=== PATIENT | female | born 1935 | race Caucasian/White ===

== ENCOUNTER → 2017-01-03 | Day surgery (SDC) | payer MEDICARE ==
[~2017-01-03] MED LIST: ASPI81 PO; LACTATED RINGER'S 1000 ML INJ 1,000 ML ONE; MEVA40TA6 PO; OYST500T77 PO; PROPOFOL 200 MG/20 ML AMP IV ONE; REST15CA PO; TAB-TAB PO; VITA400C70 PO; VITA500T10 PO; VITAMIN D PO
== END | disposition home or self-care (01) ==
LOC: ESDC 07:37
PROVIDERS: ATTEND Internal Medicine Gastroenterology
DX: K21.9 Gastro-esophageal reflux disease without esophagitis (principal); K20.9 Esophagitis, unspecified; K29.70 Gastritis, unspecified, without bleeding
CPT/HCPCS: 00740; 43239; 88305; 88312; J7120